=== PATIENT | female | born 1970 | race Two or more races ===

== ENCOUNTER 2024-08-20 16:08 | Emergency (ER) | payer OTHER, SELFPAY ==
--- NOTE | 2024-08-20 | ECG_ITS ---
Test Reason : sob Blood Pressure : */* mmHG Vent. Rate : 90 BPM Atrial Rate : 90 BPM P-R Int : 134 ms QRS Dur : 74 ms QT Int : 364 ms P-R-T Axes : 63 43 32 degrees QTcB Int : 445 ms Normal sinus rhythm Normal ECG When compared with ECG of 20-Aug-2024 16:35, Premature ventricular complexes are no longer Present QRS axis Shifted left Referred By: Generic ED Physician Electronically Signed By: Jeffrey Sommer
--- NOTE | ~2024-08-20 | XR_ITS ---
CLINICAL HISTORY: shortness of breath 2 view chest x-ray Comparison: None Findings: No consolidation or effusion. Heart size is normal. No acute fracture. IMPRESSION: 1. No acute findings. This document has been electronically signed by: Jw Don MD on 08/20/2024 18:35:41
--- NOTE | ~2024-08-20 | US_ITS ---
CLINICAL HISTORY: LE swelling, 24hr flight Venous duplex ultrasound bilateral lower extremity Comparison: None Findings: The visualized deep veins are fully compressible with normal Doppler color flow and spectral tracings. No popliteal cyst. IMPRESSION: 1. Negative for bilateral lower extremity deep vein thrombosis. This document has been electronically signed by: Jw Don MD on 08/20/2024 18:39:31
--- NOTE | 2024-08-20 16:13 | ED_ITS ---
HPI - General Adult General Chief complaint: Extremity Injury, Lower Stated complaint: bilat leg swollen Time Seen by Provider: 08/20/24 18:01 Source: patient and family Mode of arrival: ambulatory Limitations: no limitations History of Present Illness ED Provider: Dr. Angely Ribera HPI narrative: Patient comes to the emergency room complaining of fatigue, shortness of breath with exertion and bilateral lower extremity edema. Patient states that 3 days ago, patient flew in from [facility] [place]. Overall, patient travel 24 hours including connections. Patient denies any chest pain. At rest, patient has no shortness of breath. Patient denies any near syncopal or syncopal episodes. Patient states that currently she just finished her menstrual period which was heavy but this is the patient's baseline. Related Data Previous Rx's ?Medication ?Instructions ?Recorded ferrous gluconate 324 mg (37.5 mg 324 mg PO DAILY #30 tabs 08/20/24 iron) tablet furosemide 40 mg tablet (Lasix) 40 mg PO DAILY #5 tabs 08/20/24 polyethylene glycol 3350 17 17 g PO DAILY PRN laxative effect 08/20/24 gram/dose oral powder (Miralax) #119 grams Allergies Allergy/AdvReac Type Severity Reaction Status Date / Time No Known Allergies Allergy Verified 08/20/24 16:21 Review of Systems 2 Review of Systems: Constitutional : No Weight loss, No Fever, No Chills, No Night Sweats, complaining of fatigue ENT/Mouth : No Hearing loss, No Ear Pain, No Nasal Congestion, No Sinus Pain, No Hoarseness, No sore throat, No Rhinorrhea, No Swallowing Difficulty Eyes: No Eye Pain, No Swelling, No Redness, No Foreign Body, No Discharge, No Vision Changes Cardiovascular : No Chest Pain, denies orthopnea, complaining of bilateral lower extremity edema Respiratory : No Cough, No Sputum, No Wheezing, No Smoke Exposure, complaining of dyspnea on exertion Gastrointestinal : No Nausea, No Vomiting, No Diarrhea, No Constipation, No abdominal Pain, No Hematochezia, No Melena Genitourinary : Complaining of heavy menstrual periods, No Dysuria, No Urinary Frequency, No Hematuria, No Urinary Incontinence, No Urgency, No Flank Pain, No Urinary Flow Changes, No Hesitancy Musculoskeletal : No joint pain, No Myalgias, No Joint Swelling Skin : No Skin Lesions, No rash Neuro : No Weakness, No Numbness, No Paresthesias, No Loss of Consciousness, No Dizziness, No Headache Psych : No Anxiety/Panic, No Depression, No SI/HI/AH/VH, No Social Issues, Heme/Lymph: No Bruising, No Bleeding,No Lymphadenopathy Endocrine : No Polyuria, No Polydipsia, No Temperature Intolerance [facility] Past Medical History Medical History (Updated 08/20/24 @ 19:13 by Angely Ribera MD) Menorrhagia Anemia Social History Social History Smoked in Last 30 Days: No Use of substances other than those prescribed or required for medical reasons: No Advance Directives: No Advance Directives Information Provided: No Patient : No Physical Exam ED Vital Signs: Vital Signs - 24 hr 08/20/24 16:18 08/20/24 18:00 08/20/24 18:43 Temperature 97.6 F 98.1 F 97.6 F Pulse Rate 90 89 82 Respiratory Rate 18 12 18 Blood Pressure 155/54 H 144/57 H 155/54 H Pulse Oximetry 100 100 100 Oxygen Delivery Method Room Air Room Air Room Air BMI result Body Mass Index 22.0 Const Other: Appearance: Alert. Oriented X3. No acute distress. Eyes: Pupils equal, round and reactive to light. ENT: Pharynx normal. Neck: Normal inspection. Neck supple. No lymph nodes noted. No crepitus CVS: Normal heart rate and rhythm. Pulses normal. Normal S1 and S2 Respiratory: No respiratory distress. Breath sounds normal. No Wheezing. No rales Abdomen: Soft and nontender. No rigidity. No distention. Skin: Skin warm and dry. Pale skin color. Normal skin turgor. Extremities: Bilateral lower extremity pitting edema pain to palpation in the calves, No Lacerations. No Rash Neuro: Oriented X 3. No motor deficit. No sensory deficit. Moving all extremities. No slurred speech. CN 2 through 12 grossly intact Psych: calm, cooperative, normal affect Course Course Course Narrative: This is an RME performed by Evelio Wan CNP: Additional HPI, ROS, PE not included below will be deferred to primary provider. Patient is a 53-year-old female who presents emergency department coming from urgent care today for evaluation of bilateral lower extremity pitting edema, reports flight from [facility] [place] on 08/17/2024; 24 hours combined flight hours between 3 flights.Complaining of shortness of breath when walking up stairs which is atypical for her Plan: Bilateral lower extremity venous duplex ultrasound, serum labs Medical Decision Making Lab Data 08/20/24 16:47 08/20/24 16:47 Labs: Lab Results 08/20/24 08/20/24 Range/Units 16:47 18:18 WBC 5.3 (4.8-10.8) X10*3/uL RBC 3.69 L (4.20-5.50) X10*6/uL Hgb 6.5 L* (12.0-16.0) g/dl Hct 23.0 L (37.0-47.0) % MCV 62.3 L (80.0-98.0) fL MCH 17.6 L (27.0-33.0) pg MCHC 28.3 L (31.0-35.0) g/dl RDW 19.1 H (11.0-16.0) % Plt Count 344 (160-400) X10*3/uL MPV 9.9 (9.4-12.3) fL Immature Gran % (Auto) 0.4 (0.0-0.4) % Neut % (Auto) 62.2 (45-73) % Lymph % (Auto) 29.0 (20-40) % Allen % (Auto) 6.1 (2-11) % Eos % (Auto) 1.9 (0-4) % Baso % (Auto) 0.4 (0-2) % Lymph # (Auto) 1.5 (1.2-4.9) X10*3/uL Allen # (Auto) 0.3 (0.1-1.2) X10*3/uL Eos # (Auto) 0.1 (0.0-0.4) X10*3/uL Baso # (Auto) 0.0 (0.0-0.2) X10*3/uL Abs Immat Gran (auto) 0.02 (0.00-0.03) X10*3/uL Absolute Neuts (auto) 3.3 (2.0-8.3) x10*3/uL Absolute Nucleated RBC 0.000 (0.0-0.012) X10*3/uL Nucleated RBC % (auto) 0.0 (0.0-0.2) /100WBC PT 10.5 L (10.9-12.4) SEC INR 0.9 (0.9-1.1) Sodium 140 (135-145) mmol/L Potassium 3.8 (3.3-5.1) mmol/L Chloride 110 H (96-108) mmol/L Carbon Dioxide 23 (22-29) mmol/L Anion Gap 11 L (12-20) BUN 13 (9-16) mg/dL Creatinine 0.60 (0.5-1.4) mg/dL Estim Creat Clear Calc 87.7 Estimated GFR > 60 Random Glucose 98 (60-115) mg/dL Calcium 8.3 L (8.4-10.2) mg/dL Total Bilirubin 0.2 (0.0-1.0) mg/dL AST 67 H (5-31) U/L ALT 66 H (0-31) U/L Alkaline Phosphatase 78 (39-117) U/L B-Natriuretic Peptide 144 H (<100) pg/mL Total Protein 6.2 L (6.5-8.0) g/dL Albumin 3.2 L (3.5-5.0) g/dL Influenza Type A (PCR) NEGATIVE (Negative) Influenza Type B (PCR) NEGATIVE (Negative) RSV RNA Qual (PCR) NEGATIVE (Negative) SARS-CoV-2 RNA (RT-PCR) NEGATIVE (Negative) Blood Type O Positive Antibody Screen NEGATIVE Discharge Plan Discharge Clinical Impression: Anemia, Edema of left lower extremity Patient Disposition: Home, Self-Care Instructions: Leg Edema (ED), Anemia (ED) Additional Instructions: A blood transfusion was recommended. Make sure that when you stand up and walk, you do so slowly. Anemia may cause you to feel short of breath, tired, have chest pain, and as we discussed, it can cause multi organ dysfunction. Please follow-up with your primary care physician as soon as possible. Please follow- up with your primary care physician tomorrow. If you have any worsening or new symptoms, please return to the emergency room or call 911 Prescriptions: New ferrous gluconate 324 mg (37.5 mg iron) tablet 324 mg PO DAILY Qty: 30 0RF furosemide [Lasix] 40 mg tablet 40 mg PO DAILY Qty: 5 0RF polyethylene glycol 3350 [Miralax] 17 gram/dose powder 17 g PO DAILY PRN (Reason: laxative effect) Qty: 119 0RF Print Language: Thai
[2024-08-20 16:18] VITALS: BP 155/54; PULSE 90; RESP 18; TEMP 36.4; O2SAT 100; BMI 22.0
--- NOTE | 2024-08-20 16:22 | ECG_ITS ---
Test Reason : sob Blood Pressure : */* mmHG Vent. Rate : 89 BPM Atrial Rate : 89 BPM P-R Int : 130 ms QRS Dur : 80 ms QT Int : 368 ms P-R-T Axes : 116 139 159 degrees QTcB Int : 447 ms Suspect limb lead reversal, interpretation assumes no reversal Sinus rhythm with occasional Premature ventricular complexes Right axis deviation Nonspecific ST and T wave abnormality Abnormal ECG No previous ECGs available Referred By: Bridgett Wan Electronically Signed By: Jeffrey Sommer
[2024-08-20 16:56] LABS: MANUAL DIFF FLAG NO
[2024-08-20 16:58] LABS: Basophils Percent Auto 0.4 % (0-2); Eosinophils Absolute Auto 0.1 X10*3/uL (0.0-0.4); Eosinophils Percent Auto 1.9 % (0-4); Imm Gran Abs Auto 0.02 X10*3/uL (0.00-0.03); Imm Gran Pct Auto 0.4 % (0.0-0.4); Lymphocytes Absolute Auto 1.5 X10*3/uL (1.2-4.9); Mean Corpuscular HGB Conc 28.3 g/dl (31.0-35.0); Mean Corpuscular Hemoglobin 17.6 pg (27.0-33.0); Mean Platelet Volume 9.9 fL (9.4-12.3); Monocytes Absolute Auto 0.3 X10*3/uL (0.1-1.2); Monocytes Percent Auto 6.1 % (2-11); Neutrophils Absolute Auto 3.3 x10*3/uL (2.0-8.3); Neutrophils Percent Auto 62.2 % (45-73); Platelet Count 344 X10*3/uL (160-400); Red Blood Count 3.69 X10*6/uL (4.20-5.50); Red Cell Distribution Width 19.1 % (11.0-16.0); White Blood Count 5.3 X10*3/uL (4.8-10.8)
[2024-08-20 17:05] LABS: INTERNATIONAL NORM RATIO 0.9 (0.9-1.1); Prothrombin Time 10.5 SEC (10.9-12.4)
[2024-08-20 17:07] LABS: Mean Corpuscular Volume 62.3 fL (80.0-98.0)
[2024-08-20 17:09] LABS: Hemoglobin 6.5 g/dl (12.0-16.0)
[2024-08-20 17:11] LABS: Alanine Aminotransferase 66 U/L (0-31); Albumin Level 3.2 g/dL (3.5-5.0); Alkaline Phosphatase 78 U/L (39-117); Anion Gap 11 (12-20); Aspartate Amino Transferase 67 U/L (5-31); Bilirubin Total 0.2 mg/dL (0.0-1.0); Blood Urea Nitrogen 13 mg/dL (9-16); Calcium 8.3 mg/dL (8.4-10.2); Carbon Dioxide 23 mmol/L (22-29); Chloride 110 mmol/L (96-108); Creatinine Clr Calc Pharmacy 87.7; Estimated Glomerular Filt Rate > 60; Glucose Random 98 mg/dL (60-115); Potassium 3.8 mmol/L (3.3-5.1); Sodium 140 mmol/L (135-145); Total Protein 6.2 g/dL (6.5-8.0)
[2024-08-20 17:16] LABS: B Type Natriuretic Peptide 144 pg/mL (<100)
[2024-08-20 17:34] LABS: Influenza A PCR NEGATIVE (Negative); Influenza B PCR NEGATIVE (Negative); Resp Syncy Virus RNA Qual PCR NEGATIVE (Negative); SARS COV2 PCR INHOUSE NEGATIVE (Negative)
[2024-08-20 18:00] VITALS: BP 144/57; PULSE 89; RESP 12; TEMP 36.7; O2SAT 100
[2024-08-20 18:43] VITALS: BP 155/54; PULSE 82; RESP 18; TEMP 36.4; O2SAT 100
[2024-08-20 19:32] VITALS: BP 155/54; PULSE 82; RESP 18; TEMP 36.4; O2SAT 100
== END 2024-08-20 19:35 | disposition home or self-care (01) ==
PROVIDERS: Nurse Practitioner Family; Emergency Provider Emergency Medicine
DX: R60.0 Localized edema (principal); R06.02 Shortness of breath; D64.9 Anemia, unspecified; R94.31 Abnormal electrocardiogram [ECG] [EKG]; Z79.899 Other long term (current) drug therapy; Z03.818 Encounter for observation for suspected exposure to other biological agents ruled out
CPT/HCPCS: 0241U; 36415; 71046; 80053; 83880; 85025; 85610; 86850; 86900; 86901; 93005; 93970; 99284

== ENCOUNTER → 2024-08-20 16:21 | Outpatient (BNV) | payer SELFPAY | PROVIDERS: Emergency Provider Emergency Medicine; Visit Provider Radiology Diagnostic Radiology | DX: R22.43 Localized swelling, mass and lump, lower limb, bilateral (principal); R06.02 Shortness of breath | CPT/HCPCS: 71046; 93970 ==

== ENCOUNTER → 2024-08-20 16:22 | Outpatient (BNV) | payer SELFPAY | PROVIDERS: Emergency Provider Emergency Medicine; Visit Provider Internal Medicine Cardiovascular Disease | DX: R06.02 Shortness of breath (principal); I49.3 Ventricular premature depolarization | CPT/HCPCS: 93010 ==